=== PATIENT | male | born 1950 | race Caucasian/White ===

== ENCOUNTER 2020-05-13 21:28 | Emergency (ER) | payer OTHER ==
[~2020-05-13 21:28] MED LIST: AMARYL2 MG PO; AMLODIPINE BESY10 MG PO; JANUVIA100 MG PO; LISINOPRIL40 MG PO; METFORMIN HCL500 MG PO; NEURONTIN300 M1 PO; OXYCONTIN 10MG10 MG PO; PREDNISONE 20MG20 MG PO; SINGULAIR10 MG PO; SYNTHROID50 MCG PO; TRAZODONE 100M100 MG PO; ZOCOR20 MG PO; ZOLPIDEM 10MG T10 MG PO; ZPAK PO
[2020-05-13 23:53] LABS: BASOPHIL 0.8 % (0-2); EOSINOPHIL 1.5 % (0-7); HCT 41.1 % (42.0-52.0); HGB 13.4 g/dl (13.2-18.0); LYMPHOCYTE 9.2 % (15-48); MCHC 32.6 g/dL (32.0-36.0); MCV 91.9 fL (78.0-100.0); MONOCYTE 5.2 % (0-12); MPV 9.7 fL (6.0-9.5); NEUTROPHIL 82.9 % (41-80); NRBC 0; PLT 241 K/uL (150-400); RBC 4.47 M/uL (4.70-6.00); RDW 13.1 % (11.5-14.0); WBC 8.5 K/uL (4.0-10.5)
[2020-05-13 23:58] LABS: INR 1.14 (0.9-1.2); PROTHROMBIN TIME 13.9 SECONDS (11.4-13.6); PTT 30.2 SECONDS (22.2-34.7)
[2020-05-14 00:06] LABS: ALBUMIN 2.4 g/dL (3.4-5.0); BILIRUBIN - TOTAL 0.4 mg/dL (0.2-1.0); BUN/CREAT RATIO (CALC) 15.6 RATIO; CREATININE 0.77 mg/dL (0.67-1.17); POTASSIUM 4.2 mmol/L (3.5-5.1); TOTAL PROTEIN 6.4 g/dL (6.4-8.2)
[2020-05-14 00:21] LABS: LACTIC ACID 0.9 mmol/L (0.4-1.9)
[2020-05-14] MEDS ORDERED: NARCAN4 MG (05:15)
== END 2020-05-14 05:40 | disposition home or self-care (01) ==
LOC: FER 21:28
PROVIDERS: Emergency Medicine Emergency Medical Services
DX: S32.048A Other fracture of fourth lumbar vertebra, initial encounter for closed fracture (principal); R11.10 Vomiting, unspecified; M25.551 Pain in right hip; M25.552 Pain in left hip; R10.9 Unspecified abdominal pain; R53.1 Weakness; Z88.5 Allergy status to narcotic agent; Z88.6 Allergy status to analgesic agent; Z85.07 Personal history of malignant neoplasm of pancreas; Z98.890 Other specified postprocedural states; W19.XXXA Unspecified fall, initial encounter; Y92.009 Unspecified place in unspecified non-institutional (private) residence as the place of occurrence of the external cause; Z20.822 Contact with and (suspected) exposure to COVID-19
CPT/HCPCS: 36415; 70450; 71275; 72193; 80053; 83605; 83690; 84145; 84484; 85025; 85610; 85730; 87040; J1170; J2405; J2550; J7120; Q9967; U0002

== ENCOUNTER 2020-06-10 18:48 | Inpatient (IN) | payer OTHER ==
[~2020-06-10 18:48] MED LIST changes: +NARCAN4 MG
[2020-06-10 21:53] LABS: BASOPHIL 0.5 % (0-2); EOSINOPHIL 0.6 % (0-7); HCT 43.6 % (42.0-52.0); HGB 14.8 g/dl (13.2-18.0); LYMPHOCYTE 14.9 % (15-48); MCH 30.5 pg (25.0-31.0); MCHC 33.9 g/dL (32.0-36.0); MCV 89.9 fL (78.0-100.0); MPV 10.2 fL (6.0-9.5); NEUTROPHIL 78.3 % (41-80); NRBC 0; PLT 276 K/uL (150-400); RBC 4.85 M/uL (4.70-6.00); RDW 13.8 % (11.5-14.0)
[2020-06-10 22:11] LABS: ALBUMIN 3.1 g/dL (3.4-5.0); BILIRUBIN - TOTAL 0.5 mg/dL (0.2-1.0); BUN/CREAT RATIO (CALC) 23.3 RATIO; CREATININE 0.86 mg/dL (0.67-1.17); GLOBULIN (CALCULATION) 3.5 g/dL; POTASSIUM 4.2 mmol/L (3.5-5.1); TOTAL PROTEIN 6.6 g/dL (6.4-8.2)
[2020-06-11 04:56] LABS: BILIRUBIN NEGATIVE (NEGATIVE); BLOOD NEGATIVE Ery/uL (NEGATIVE); CLARITY CLEAR (CLEAR); COLOR YELLOW (YELLOW); GLUCOSE (U) NORMAL (NORMAL); LEUKOCYTES TRACE Leu/uL (NEGATIVE); NITRITE NEGATIVE (NEGATIVE); PROTEIN NEGATIVE (NEGATIVE); SPECIFIC GRAVITY 1.025 (1.001-1.030); UROBILINOGEN 0.2 mg/dL (0.2-1.0); pH 5.5 (5.0-9.0)
[2020-06-11 05:04] LABS: BACTERIA TRACE; CALCIUM OXALATE CRYSTALS MODERATE; URINARY WBC RARE
[2020-06-11] MEDS ORDERED: NEURONTIN400 MG PO (05:19)
[2020-06-11] MEDS ORDERED: PERCOCET 10-321 EACH PO (05:21)
[2020-06-11] MEDS ORDERED: LANTUS100 UNIT/1 SC (05:22)
[2020-06-11] MEDS ORDERED: MARINOL5 MG PO (05:23)
[2020-06-11] MEDS ORDERED: PROTONIX 40MG T40 MG PO (05:23)
[2020-06-11] MEDS ORDERED: REGLAN5 MG PO (05:23)
[2020-06-11] MEDS ORDERED: PROMETHEGA12.5 MG/SU PO (05:24)
[2020-06-11] MEDS ORDERED: ZOFRAN4 M1 PO (05:25)
[2020-06-11] MEDS ORDERED: DULCOLAX5 MG PO (05:25)
[2020-06-11] MEDS ORDERED: [UNRECOGNIZED DRUG - OTHER] GT (05:26)
[2020-06-11 05:37] LABS: CORONAVIRUS 2019 SARS-COV-2 NEGATIVE (NEGATIVE); INFLUENZA A NAA NEGATIVE (NEGATIVE)
[2020-06-12 07:29] LABS: HCT 37.7 % (42.0-52.0); HGB 12.9 g/dl (13.2-18.0); LYMPHOCYTE 30.5 % (15-48); MCH 30.4 pg (25.0-31.0); MCHC 34.2 g/dL (32.0-36.0); MCV 88.7 fL (78.0-100.0); MONOCYTE 8.4 % (0-12); MPV 10.2 fL (6.0-9.5); NEUTROPHIL 57.6 % (41-80); NRBC 0; PLT 231 K/uL (150-400); RBC 4.25 M/uL (4.70-6.00); RDW 13.9 % (11.5-14.0); WBC 5.9 K/uL (4.0-10.5)
[2020-06-12 07:55] LABS: BUN/CREAT RATIO (CALC) 27.9 RATIO; CREATININE 0.61 mg/dL (0.67-1.17); POTASSIUM 3.3 mmol/L (3.5-5.1)
[2020-06-13 06:59] LABS: BASOPHIL 0.9 % (0-2); HCT 37.7 % (42.0-52.0); HGB 12.9 g/dl (13.2-18.0); LYMPHOCYTE 30.1 % (15-48); MCH 30.8 pg (25.0-31.0); MCHC 34.2 g/dL (32.0-36.0); MONOCYTE 8.1 % (0-12); MPV 10.6 fL (6.0-9.5); NEUTROPHIL 57.4 % (41-80); NRBC 0; PLT 226 K/uL (150-400); RBC 4.19 M/uL (4.70-6.00); RDW 13.9 % (11.5-14.0); WBC 6.6 K/uL (4.0-10.5)
[2020-06-13 07:15] LABS: BUN/CREAT RATIO (CALC) 16.9 RATIO; CREATININE 0.59 mg/dL (0.67-1.17); POTASSIUM 2.9 mmol/L (3.5-5.1)
[2020-06-13 23:06] LABS: MAGNESIUM 1.7 mg/dL (1.8-2.4); POTASSIUM 4.2 mmol/L (3.5-5.1)
[2020-06-14 06:28] LABS: EOSINOPHIL 2.3 % (0-7); HGB 11.7 g/dl (13.2-18.0); LYMPHOCYTE 32.4 % (15-48); MCH 30.4 pg (25.0-31.0); MCHC 32.5 g/dL (32.0-36.0); MCV 93.5 fL (78.0-100.0); MONOCYTE 7.7 % (0-12); MPV 11.6 fL (6.0-9.5); NEUTROPHIL 56.4 % (41-80); NRBC 0; RBC 3.85 M/uL (4.70-6.00); RDW 14.2 % (11.5-14.0); WBC 5.2 K/uL (4.0-10.5)
[2020-06-14 06:50] LABS: BUN/CREAT RATIO (CALC) 8.5 RATIO; CREATININE 0.59 mg/dL (0.67-1.17); POTASSIUM 4.2 mmol/L (3.5-5.1)
[2020-06-14 07:11] LABS: PLT 126 K/uL (150-400)
[2020-06-14] MEDS ORDERED: SENOKOT8.6 MG PO (13:19)
[2020-06-14] MEDS ORDERED: MIRALAX17 GM PO (13:19)
[2020-06-15 06:15] LABS: BASOPHIL 0.8 % (0-2); EOSINOPHIL 3.1 % (0-7); HCT 39.2 % (42.0-52.0); HGB 12.8 g/dl (13.2-18.0); LYMPHOCYTE 35.7 % (15-48); MCH 29.6 pg (25.0-31.0); MCHC 32.7 g/dL (32.0-36.0); MCV 90.7 fL (78.0-100.0); MONOCYTE 9.3 % (0-12); MPV 10.8 fL (6.0-9.5); NEUTROPHIL 50.7 % (41-80); NRBC 0; PLT 211 K/uL (150-400); RBC 4.32 M/uL (4.70-6.00); WBC 4.9 K/uL (4.0-10.5)
[2020-06-15 06:32] LABS: BUN/CREAT RATIO (CALC) 8.6 RATIO; CREATININE 0.58 mg/dL (0.67-1.17)
[2020-06-15] MEDS ORDERED: COLESTID1 GM PO (19:22)
== END 2020-06-15 20:46 | disposition home or self-care (01) | DRG 390 ==
LOC: FER 18:48 → FMS 06-11 02:59
PROVIDERS: Emergency Medicine; Internal Medicine; Nurse Practitioner; ADMIT Internal Medicine
DX: K56.41 Fecal impaction (principal); T40.2X5A Adverse effect of other opioids, initial encounter; I10 Essential (primary) hypertension; E11.9 Type 2 diabetes mellitus without complications; G89.4 Chronic pain syndrome; Z95.5 Presence of coronary angioplasty implant and graft; Z90.49 Acquired absence of other specified parts of digestive tract; Z98.890 Other specified postprocedural states; Z85.07 Personal history of malignant neoplasm of pancreas; K21.9 Gastro-esophageal reflux disease without esophagitis; Z20.822 Contact with and (suspected) exposure to COVID-19; E03.9 Hypothyroidism, unspecified; E78.5 Hyperlipidemia, unspecified; Z79.4 Long term (current) use of insulin; E87.6 Hypokalemia
CPT/HCPCS: 36415; 71045; 74018; 80048; 80053; 81001; 82962; 83690; 83735; 84132; 84484; 85025; 87339; 93005; C9113; J1170; J1650; J2405; J2550; J2765; J7030; Q0169; Q9967; U0002

== ENCOUNTER → 2020-07-27 | Emergency (ER) | payer OTHER ==
[~2020-07-27] MED LIST changes: +COLESTID1 GM PO; +DULCOLAX5 MG PO; +LANTUS100 UNIT/1 SC; +MARINOL5 MG PO; +MIRALAX17 GM PO; +NEURONTIN400 MG PO; +PERCOCET 10-321 EACH PO; +PROMETHEGA12.5 MG/SU PO; +PROTONIX 40MG T40 MG PO; +REGLAN5 MG PO; +SENOKOT8.6 MG PO; +ZOFRAN4 M1 PO; +[UNRECOGNIZED DRUG - OTHER] GT
== END | disposition home or self-care (01) ==
LOC: FER 16:21
DX: R11.2 Nausea with vomiting, unspecified (principal); Z53.8 Procedure and treatment not carried out for other reasons